=== PATIENT | male | born 1995 | race Caucasian/White ===

== ENCOUNTER 2023-02-23 18:15 | Emergency (ER) | payer MEDICAID ==
[~2023-02-23] VITALS: Ht 182.9 cm; Wt 97.7 kg
[~2023-02-23 18:15] MED LIST: BUPR1FIL3 SL; CHLO25CA10 PO; DIAZ10TA4 PO; NICO-907 BC; PROP10TA10 PO; TRAZ-251 PO; VENL75CA61 PO; ZOLP10TA PO; gabapentin capsule PO
[2023-02-23 18:59] LABS: BASOPHILS # (AUTO) 0.1 X10'3 (0-0.2); BASOPHILS % (AUTO) 0.7 % (0-1); EOSINOPHILS # (AUTO) 0.2 X10'3 (0-0.9); EOSINOPHILS % (AUTO) 2.2 % (0-6); HEMATOCRIT 42.3 % (42.0-52.0); HEMOGLOBIN 14.9 g/dl (14.0-17.9); LYMPHOCYTES # (AUTO) 1.2 X10'3 (1.1-4.8); LYMPHOCYTES % (AUTO) 16.3 % (21-51); MEAN CORPUSCULAR HEMOGLOBIN 30.7 PG (27.0-31.0); MEAN CORPUSCULAR HGB CONC 35.2 g/dL (33.0-36.5); MEAN CORPUSCULAR VOLUME 87.2 FL (78-98); MEAN PLATELET VOLUME 7.4 FL (7.4-10.4); MONOCYTES # (AUTO) 0.5 X10'3 (0-0.9); MONOCYTES % (AUTO) 6.7 % (2-12); NEUTROPHILS # (AUTO) 5.7 X10'3 (1.8-7.7); NEUTROPHILS % (AUTO) 74.1 % (42-75); PLATELET COUNT 225 X10'3 (140-440); RED BLOOD COUNT 4.85 X10'6 (4.70-6.10); RED CELL DISTRIBUTION WIDTH 12.6 % (11.5-14.5); WHITE BLOOD COUNT 7.6 X10'3 (4.5-11.0)
[2023-02-23 19:10] LABS: ALANINE AMINOTRANSFERASE 49 U/L (12-78); ALBUMIN 4.2 G/DL (3.4-5.0); ALBUMIN/GLOBULIN RATIO 1.3 (1.1-1.5); ALKALINE PHOSPHATASE 64 IU/L (46-116); ANION GAP 6 (8-16); ASPARTATE AMINO TRANSFERASE 28 U/L (10-37); BILIRUBIN,TOTAL 0.3 MG/DL (0.1-1.0); BLOOD UREA NITROGEN 27 MG/DL (7-18); CALCIUM 9.1 MG/DL (8.5-10.1); CHLORIDE 99 MMOL/L (99-107); GLUCOSE 100 MG/DL (70-104); POTASSIUM 3.9 MMOL/L (3.5-5.1); SODIUM 136 MMOL/L (135-145); TOTAL CARBON DIOXIDE 31.3 MMOL/L (24-32); TOTAL PROTEIN 7.5 G/DL (6.4-8.2); eGFR 89 ML/MIN
[2023-02-23 19:19] LABS: ETHANOL < 10 MG/DL (<10); THYROID STIMULATING HORMONE 2.32 ulU/ml (0.34-4.50)
[2023-02-23] MEDS ORDERED: PROP10TA10 PO (20:04)
[2023-02-23] MEDS ORDERED: VENL150C4 PO (20:04)
[2023-02-23] MEDS ORDERED: GABA600T13 PO (20:04)
[2023-02-23] MEDS ORDERED: GABA-530 PO (20:04)
[2023-02-23] MEDS ORDERED: TRAZ-256 PO (20:04)
[2023-02-23] MEDS ORDERED: BUPR1FIL3 SL (20:04)
--- NOTE | 2023-02-23 20:11 | NUR ---
The patient is a 27 year old male who was brought in by [employer] on a written 5150 for being a danger to self after he contacted them stating he was suicidal to walk into traffic. The patient was discharged from [facility] earlier in the day with a [facility]. When asked about what happened with his plan to stay at the [facility] he stated "I can't be around those people...I have social anxiety...I can't be homeless" He subsequently called the police and said he was suicidal. HX of MDD, personality disorder, polysubstance abuse. He was recently kicked out of his drug treatment program.
[2023-02-23] MEDS ORDERED: traZODone 50mg tablet PO SCH (21:00)
[2023-02-23 21:09] LABS: URINE AMPHETAMINE SCREEN NEGATIVE (Neg); URINE BARBITUATE SCREEN NEGATIVE (Neg); URINE BENZODIAZEPINES SCREEN POSITIVE (Neg); URINE CANNABINOID SCREEN POSITIVE (Neg); URINE COCAINE SCREEN NEGATIVE (Neg); URINE METHADONE SCREEN NEGATIVE (Neg); URINE OPIATE SCREEN NEGATIVE (Neg); URINE PHENCYCLIDINE SCREEN NEGATIVE (Neg)
[2023-02-23] MEDS ORDERED: gabapentin 100mg capsule PO SCH (21:15)
[2023-02-23] MEDS ORDERED: propranolol 10mg tablet PO PRN (21:16)
[2023-02-23] MEDS ORDERED: gabapentin 300mg capsule PO SCH ×3 (21:17→21:31)
[2023-02-23] MEDS: buprenorphine/naloxone 8MG-2MG SUBlingual film SL SCH (21:35)
--- NOTE | 2023-02-23 22:28 | NUR ---
The patient appears to be sleeping
--- NOTE | 2023-02-24 01:05 | NUR ---
The patient appears to be sleeping
--- NOTE | 2023-02-24 03:07 | NUR ---
The patient appears to be sleeping
--- NOTE | 2023-02-24 03:40 | NUR ---
PACKET SENT TO [facility]
--- NOTE | 2023-02-24 05:38 | NUR ---
The patient appears to be sleeping
--- NOTE | 2023-02-24 06:59 | NUR ---
Patient is quietly laying in bed.
[2023-02-24] MEDS: buprenorphine/naloxone 8MG-2MG SUBlingual film SL SCH (07:53)
[2023-02-24] MEDS: gabapentin 100mg capsule PO SCH ×2 (07:53→12:36)
[2023-02-24] MEDS ORDERED: venlafaxine XR 75mg capsule (Q24H) PO SCH (08:00)
--- NOTE | 2023-02-24 10:14 | NUR ---
"Patient states that he has thoughts of harming himself my slitting his wrist and neck. I also think maybe I'll get to a really high building and jump."
--- NOTE | 2023-02-24 11:30 | NUR ---
[facility] attempted to talk with patient, patient became agitated. [facility] told patient he would be back after lunch to try and talk with him again.
--- NOTE | 2023-02-24 13:00 | NUR ---
[facility] talked with patient about placement at [facility].
[2023-02-24 14:57] VITALS: BP 122/74; PULSE 74; RESP 16; TEMP 97.9; O2SAT 99
== END 2023-02-24 15:01 | disposition home or self-care (01) ==
LOC: ER 18:15
DX: R45.851 Suicidal ideations (principal); Z20.822 Contact with and (suspected) exposure to COVID-19; F32.A Depression, unspecified
CPT/HCPCS: 36415; 80053; 80305; 80320; 84443; 85025; 87811; 99285